=== PATIENT | female | born 1960 | race Caucasian/White ===

== ENCOUNTER 2017-06-01 12:09 | Day surgery (SDC) | payer OTHER ==
[~2017-06-01] VITALS: Ht 160 cm; Wt 56.3 kg
[~2017-06-01 12:09] MED LIST: CYCL-319 PO; IBUP800T25 PO
[2017-06-01 13:54] VITALS: Ht 160 cm; Wt 56.3 kg
[2017-06-01] MEDS ORDERED: ATOR20TA65 PO (14:05)
[2017-06-01] MEDS ORDERED: CARV6.2579 PO (14:05)
[2017-06-01] MEDS ORDERED: ASPI81TA3 PO (14:05)
[2017-06-01] MEDS ORDERED: LOSA100T7 PO (14:05)
[2017-06-01] MEDS ORDERED: CHOL100062 PO (14:05)
[2017-06-01] MEDS ORDERED: OMEP40CA6 PO (14:05)
[2017-06-01] MEDS ORDERED: EZET10TA3 PO (14:05)
[2017-06-01] MEDS ORDERED: LIDOCAINE 2% (SDV) 5 ML INJ ONE (14:09)
[2017-06-01] MEDS ORDERED: MIDAZOLAM 1 MG/ML 2 ML INJ ONE (14:09)
[2017-06-01] MEDS ORDERED: PROPOFOL 20 ML ONE (14:09)
[2017-06-01 14:49] VITALS: BP 139/72; PULSE 74; RESP 17
--- NOTE | 2017-06-01 16:12 | OPR ---
Date/Time of Note Date/Time of Note DATE: 06/01/17 TIME: 16:11 Operative Report Preoperative Diagnosis * Colorectal cancer screening Postoperative Diagnosis Assessment * Normal colonic mucosa * Moderate-sized internal hemorrhoids Plan: * High-fiber diet * Annual Hemoccult stool testing * Screening colonoscopy in 10 years Operation/Procedure Performed * Colonoscopy to cecum Anesthesia: MAC Estimated Blood Loss: none Grafts/Implants NA Complications: None CONTRERAS NEWTON MD Jun 01, 2017 16:12
--- NOTE | 2017-06-01 16:15 | OPR ---
Date/Time of Note Date/Time of Note DATE: 06/01/17 TIME: 16:12 Operative Report Preoperative Diagnosis * Dyspepsia Postoperative Diagnosis Assessment * Distal esophagitis * Rule out Ren's esophagus. Biopsies obtained * Esophageal web, non-obstructive Plan: * Continue PPI therapy * Review pathology as soon as available * Follow-up as previously scheduled Operation/Procedure Performed * EGD with biopsies Anesthesia: MAC Estimated Blood Loss: none Specimens * Distal esophagus * Gastric body and antrum Grafts/Implants NA Complications: None CONTRERAS NEWTON MD Jun 01, 2017 16:15
[2017-06-01 16:20] VITALS: BP 126/73; PULSE 66; RESP 14
== END 2017-06-01 15:37 | disposition home or self-care (01) ==
LOC: GIL 12:09
PROVIDERS: ATTEND Internal Medicine Gastroenterology
DX: Z12.11 Encounter for screening for malignant neoplasm of colon (principal); K20.8 Other esophagitis; K64.8 Other hemorrhoids; I10 Essential (primary) hypertension; E11.9 Type 2 diabetes mellitus without complications
CPT/HCPCS: 43239; 45378; J2250; Z7610; 88305; 88312; 88313

== ENCOUNTER 2017-11-19 12:21 | Emergency (ER) | payer OTHER ==
[~2017-11-19] VITALS: Ht 152.4 cm; Wt 55.9 kg
[~2017-11-19 12:21] MED LIST changes: +ASPI81TA3 PO; +ATOR20TA65 PO; +CARV6.2579 PO; +CHOL100062 PO; -CYCL-319 PO; +EZET10TA3 PO; -IBUP800T25 PO; +LOSA100T7 PO; +OMEP40CA6 PO
[2017-11-19 12:24] VITALS: Ht 152.4 cm; Wt 55.9 kg
[2017-11-19] MEDS ORDERED: ACETAMINOPHEN 500 MG TAB PO STA (12:56)
[2017-11-19] MEDS ORDERED: IBUPROFEN 800 MG TAB PO ONE (13:00)
[2017-11-19 13:33] LABS: URINE BLOOD (Dip) POC 2+ (NEGATIVE)
--- NOTE | 2017-11-19 14:17 | RADRPT ---
PROCEDURE: Chest x-ray CLINICAL INDICATION: Cough TECHNIQUE: Chest single view COMPARISON: 12/27/2016 FINDINGS: The heart is normal in size. The pulmonary vessels are normal in caliber. The lungs are clear. Th e costophrenic angles are sharp. The visualized bony thorax is unremarkable. IMPRESSION: No acute cardiopulmonary disease. RPTAT: HH .Jesus Fried MD, Date Time Electronically viewed and signed by .Jesus Fried MD, on 11/19/2017 14:17 .W/
[2017-11-19] MEDS ORDERED: ACET325T33 PO (14:41)
[2017-11-19] MEDS ORDERED: IBUP800T25 PO (14:41)
--- NOTE | 2017-11-19 14:51 | ERD ---
ER Documentation Chief Complaint Chief Complaint cough/congestion; back pain, fever x days; HPI 57-year-old female complaining of cough and congestion with back pain and a fever 3 days. Patient states she has diffuse body aches. She took Tylenol this morning. She does have a dry cough. Denies runny nose. Has a sore throat. Denies pain with urination. Denies any changes to bowel movements. Denies sick contacts. No vomiting. No nausea. Denies chest pain or shortness of breath. Medical history: Hypertension. NKDA. Surgical history: Back surgery. Social history: Denies ROS All systems reviewed and are negative except as per history of present illness. Medications Home Meds Active Scripts Acetaminophen* (Tylenol*) 325 Mg Tablet, 2 TAB PO Q6 Y for PAIN AND OR ELEVATED TEMP, #20 TAB Prov:JACKY CONTRERAS PA-C 11/19/17 Ibuprofen* (Motrin*) 800 Mg Tab, 800 MG PO Q6, #30 TAB Prov:JACKY CONTRERAS PA-C 11/19/17 Reported Medications Omeprazole* (Omeprazole*) 40 Mg Capsule.dr, 40 MG PO DAILY, #30 CAP 06/01/17 Ezetimibe* (Zetia*) 10 Mg Tablet, 10 MG PO HS, TAB 06/01/17 Carvedilol* (Carvedilol*) 6.25 Mg Tablet, 6.25 MG PO BID, #60 TAB 06/01/17 Atorvastatin Calcium (Atorvastatin Calcium) 20 Mg Tablet, 20 MG PO QHS, #30 TAB 06/01/17 Cholecalciferol* (Vitamin D3*) 1,000 Unit Tablet, 1000 UNIT PO DAILY, TAB 06/01/17 Losartan Potassium* (Losartan Potassium*) 100 Mg Tablet, 100 MG PO DAILY, TAB 06/01/17 Aspirin* (Aspirin* Chew) 81 Mg Tab.chew, 81 MG PO DAILY, TAB.CHEW 06/01/17 Allergies Allergies: Coded Allergies: No Known Allergy (Unverified , 11/19/17) PMhx/Soc History of Surgery: Yes (HYSTERECTOMY, BACK SURGERY) Anesthesia Reaction: No Hx Neurological Disorder: No Hx Respiratory Disorders: No Hx Cardiac Disorders: Yes (HYPERTENSION) Hx Psychiatric Problems: No Hx Miscellaneous Medical Probl: Yes (HYPERLIPIDEMIA) Hx Alcohol Use: No Hx Substance Use: No Hx Tobacco Use: No Smoking Status: Never smoker Physical Exam Vitals Vital Signs Date Time Temp Pulse Resp B/P Pulse Ox O2 Delivery O2 Flow Rate FiO2 11/19/17 12:24 100.0 112 18 142/86 97 Physical Exam GENERAL: The patient is well-appearing, well-nourished, in no acute distress HEENT: Atraumatic. Conjunctivae are pink. Pupils equal, round, and reactive to light. There is no scleral icterus. Tympanic membranes clear bilaterally. Oropharynx clear. No nystagmus or photophobia. NECK: C-spine is soft and supple. There is no meningismus. There is no cervical lymphadenopathy. CHEST: Clear to auscultation bilaterally. There are no rales, wheezes or rhonchi. HEART: Regular rate and rhythm. No murmurs, clicks, rubs or gallops. No S3 or S4. ABDOMEN:Soft, nontender and nondistended. Good bowel sounds. No rebound or guarding. No gross peritonitis. No gross organomegaly or masses. No Rosales sign or McBurney point tenderness. Results 24 hrs Laboratory Tests Test 11/19/17 13:34 Bedside Urine pH (LAB) 6.5 Bedside Urine Protein (LAB) Negative Bedside Urine Glucose (UA) Negative Bedside Urine Ketones (LAB) 3+ Bedside Urine Blood 2+ Bedside Urine Nitrite (LAB) Negative Bedside Urine Leukocyte Esterase (L Trace Current Medications Medications (Trade) Dose Ordered Sig/Ana Rosa Route PRN Reason Start Time Stop Time Status Last Admin Dose Admin Acetaminophen (Tylenol Tab) 1,000 mg ONCE STAT PO 11/19/17 12:56 11/19/17 12:57 DC 11/19/17 13:09 Ibuprofen (Motrin) 800 mg ONCE ONCE PO 11/19/17 13:00 11/19/17 13:01 DC 11/19/17 13:09 Procedures/MDM ER course: Influenza swab negative. Ibuprofen and Tylenol given in ED. DIAGNOSTIC IMAGING REPORT Patient: TERRY SONG : 1960 Age: 57 Sex: F MR #: [id number] DOS: 11/19/17 1256 Ordering MD: FREDIS CONTRERAS PA-C Location: [facility] Room/Bed: PROCEDURE: Chest x-ray CLINICAL INDICATION: Cough TECHNIQUE: Chest single view COMPARISON: 12/27/2016 FINDINGS: The heart is normal in size. The pulmonary vessels are normal in caliber. The lungs are clear. The costophrenic angles are sharp. The visualized bony thorax is unremarkable. IMPRESSION: No acute cardiopulmonary disease. MDM: 57-year-old female complaining of cough, congestion and back pain. I have low suspicion for pneumonia as patient's breath sounds are within normal limits. I have low suspicion for acute abdomen as patient abdominal exam is non -concerning. I have low suspicion for bacterial HEENT infection. Patient's exam is within normal limits. I have low suspicion for UTI or pyelonephritis as patient's exam is within normal limits. Patient likely has viral syndrome with fever. Patient is discharged with medication to prevent fever and told to follow-up with PMD within 1 to 2 days for close evaluation. Patient is told if symptoms change or worsen to return immediately to the ER. All questions answered at discharge Departure Diagnosis: Primary Impression: Fever Condition: Stable Patient Instructions: Fever Control (Adult), Viral Syndrome (Adult) Referrals: [facility] YOU HAVE RECEIVED A MEDICAL SCREENING EXAM AND THE RESULTS INDICATE THAT YOU DO NOT HAVE A CONDITION THAT REQUIRES URGENT TREATMENT IN THE EMERGENCY DEPARTMENT. FURTHER EVALUATION AND TREATMENT OF YOUR CONDITION CAN WAIT UNTIL YOU ARE SEEN IN YOUR DOCTORS OFFICE WITHIN THE NEXT 1-2 DAYS. IT IS YOUR RESPONSIBILITY TO MAKE AN APPOINTMENT FOR FOLOW-UP CARE. IF YOU HAVE A PRIMARY DOCTOR --you should call your primary doctor and schedule an appointment IF YOU DO NOT HAVE A PRIMARY DOCTOR YOU CAN CALL OUR PHYSICIAN REFERRAL HOTLINE AT IF YOU CAN NOT AFFORD TO SEE A PHYSICIAN YOU CAN CHOSE FROM THE FOLLOWING [facility] [address] [facility] [address] [facility] [address] [facility] [address] [facility] [address] [facility]. [facility]. [address] Additional Instructions: FOLLOW UP WITH YOUR PRIMARY CARE PHYSICIAN TOMORROW.Return to this facility if you are not improving as expected. JACKY CONTRERAS PA-C Nov 19, 2017 14:51
== END 2017-11-19 15:20 | disposition home or self-care (01) ==
LOC: FTE 12:21
DX: R50.9 Fever, unspecified (principal); I10 Essential (primary) hypertension; Z79.82 Long term (current) use of aspirin
CPT/HCPCS: 71010; 81003; 87400; Z7502; Z7610

== ENCOUNTER 2018-04-29 08:53 | Day surgery (SDC) | END 2018-04-29 15:45 | disposition home or self-care (01) ==